=== PATIENT | male | born 1980 | race Caucasian/White ===

== ENCOUNTER 2020-04-14 03:52 | Emergency (ER) | payer MEDICARE, MEDICAID, SELFPAY ==
[2020-04-14 03:57] VITALS: BP 105/75; BP 114/77; PULSE 91; PULSE 95; RESP 18; TEMP 36.7; O2SAT 100; O2SAT 95; BMI 27.8
--- NOTE | 2020-04-14 04:08 | ED.PSYCH ---
HPI - Psych General Chief Complaint: Psychiatric Symptoms Stated Complaint: SI Time Seen by Provider: 04/14/20 04:08 History of Present Illness HPI Narrative: This is a 39-year-old male who presents with complaints of suicidal ideation with plan to jump in front of a car. In addition, patient states that he uses crack and smokes marijuana as well as drinking alcohol. He states he has been admitted before for depression and suicide attempt. Otherwise, he denies fevers, chills, shortness of breath, chest pain/palpitations,GI symptoms, symptoms Related Data Home Medications Medication Instructions Recorded Confirmed No Known Home Meds 04/14/20 04/14/20 Allergies Allergy/AdvReac Type Severity Reaction Status Date / Time amoxicillin Allergy Unknown Verified 04/14/20 04:11 Review of Systems Review of Systems: Pertinent positives and negatives as stated in the HPI. GEN: no fevers, chills, fatigue HEENT: no nasal congestion, sore throat, ear pain NEURO: no headache, dizziness, focal weakness PULM: no cough, shortness of breath CV: no chest pain, palpitations, LE edema ABD: no abdominal pain, nausea, vomiting, diarrhea : no dysuria, urgency, frequency SKIN: no rash ROS otherwise negative x 10 PMFSH Past Medical History Source: nursing notes reviewed Medical History No known health problems Social History Social History Alcohol intake: current Alcohol intake frequency: 3 or more drinks per day Alcohol type: beer, wine and hard liquor Smoking Status: Current every day smoker Smoked in Last 30 Days: Yes Use of substances other than those prescribed or required for medical reasons: Yes Substance Use Type: Crack/Cocaine Substance Use Frequency: Daily Last Used Substance: Just Prior to Admission Any prior treatment program specific to substance use: Yes Advance Directives: No Advance Directives Information Provided: No Physical Exam Vital Signs and I&O and Narrative: Vital Signs and I&O: Vital Signs Temp 98.1 F 04/14/20 03:57 Pulse 79 04/14/20 07:31 Resp 20 04/14/20 07:31 BP 112/67 04/14/20 07:31 Pulse Ox 99 04/14/20 07:31 Intake & Output 1004/14/20 04/14/20 18:59 06:59 18:59 Weight 109.275 kg Body Mass Index 27.8 VITAL SIGNS: Reviewed. GENERAL: Well developed, well nourished, in no acute distress. HEAD: Normocephalic/atraumatic, EYES: PERRLA, EOMI intact without pain, no nystagmus/pallor/icterus noted EARS: Ext canals without abnormality, TMs non-bulging and non-erythematous NOSE: Nares patent bilateral OROPHARYNX: no oral lesions noted, posterior pharynx clear and non-erythematous without noted tonsillar enlargement/erythema/exudates NECK: Supple, no adenopathy LUNGS: Normal breath sounds. No adventitious sounds or accessory muscle use. SpO2< 99%> CARDIOVASCULAR: Regular rate and rhythm without noted murmurs, no JVD or lower extremity edema. ABDOMEN: Soft, non-tender, non-distended with bowel sounds. No rigidity. No guarding. No palpable masses or hernias noted MUSCULOSKELETAL: No tenderness, deformities, or effusions noted on gross inspection. EXTREMITIES: No cyanosis, clubbing or edema. SKIN: Inspection of the skin reveals no rashes, ulcerations, jaundice, pallor, or petechiae. NEUROLOGIC: Alert and oriented x 4. Strength and sensation to light touch were grossly intact x 4. Course Course Course Narrative: is a 39-year-old male with history and clinical presentation consistent with suicidal ideation and depression and review urinalysis and drugs of abuse have been completed. Patient is otherwise medically cleared for evaluation by the crisis team. He is on a 1-1. MDM - Psych Restraints Face to Face Assessment: Face to Face Assessment: Current Situation: After assessment of the patient, a review of the pertinent medical record and a discussion with nursing staff, I feel the patient requires a restrain intervention. Reaction To: [] Medical Condition: [] Behavioral State: [] Continued Need: [] Lab Data Labs: Lab Results 04/14/20 04/14/20 Range/Units 04:21 04:21 Urine Color YELLOW Urine Appearance CLEAR Urine pH 6.0 (5.0-8.0) Ur Specific [place] 1.025 (1.005-1.025) Urine Protein NEG (NEG-TRACE) MG/DL Urine Glucose (UA) NEG (NEG) MG/DL Urine Ketones NEG (NEG) MG/DL Urine Blood NEG (NEG) Urine Nitrite NEG (NEG) Ur Leukocyte Esterase NEG (NEG) Urine Opiates Screen Not Detected (Not Detect) Ur Barbiturates Screen Not Detected (Not Detect) Ur Phencyclidine Scrn Not Detected (Not Detect) Ur Amphetamines Screen Not Detected (Not Detect) U Benzodiazepines Scrn POSITIVE H (Not Detect) Urine Cocaine Screen POSITIVE H (Not Detect) U Marijuana (THC) Screen Not Detected (Not Detect) Discharge Plan Discharge Prescriptions: No Action No Known Home Meds RF: 0
[2020-04-14 04:32] LABS: Glucose Urine UA NEG (NEG); Leukocyte Esterase Urine NEG (NEG); Nitrite Urine NEG (NEG); Specific Gravity - Urine 1.025 (1.005-1.025); Urine Blood NEG (NEG); Urine Ketones NEG (NEG); Urine Protein NEG (NEG-TRACE)
[2020-04-14 04:33] LABS: Appearance Urine CLEAR; Color Urine YELLOW; UACC Culture Trigger NO
[2020-04-14 04:58] LABS: Amphetamine Screen Urine Not Detected (Not Detect); Barbiturates, Urine Not Detected (Not Detect); Benzodiazepines Screen Urine POSITIVE (Not Detect); Cannabinoid Screen Urine Not Detected (Not Detect); Opiate Screen Urine Not Detected (Not Detect); Phencyclidine Screen Urine Not Detected (Not Detect)
[2020-04-14 05:02] LABS: Cocaine Screen Urine POSITIVE (Not Detect)
[2020-04-14 05:38] VITALS: BP 101/59; PULSE 83; RESP 18; O2SAT 98
[2020-04-14 07:31] VITALS: BP 112/67; PULSE 79; RESP 20; O2SAT 99
--- NOTE | 2020-04-14 09:48 | PC.NURSE ---
Demographic sheet and ED transfer report faxed and confirmed to [facility]. Pt awaiting N eval.
[2020-04-14 11:09] VITALS: BP 102/70; PULSE 96; RESP 20; TEMP 36.6; O2SAT 96
== END 2020-04-14 14:23 | disposition home or self-care (01) ==
PROVIDERS: Emergency Provider Student in an Organized Health Care Education/Training Program
DX: F32.9 Major depressive disorder, single episode, unspecified (principal); R45.851 Suicidal ideations; F14.90 Cocaine use, unspecified, uncomplicated; F12.90 Cannabis use, unspecified, uncomplicated; F17.200 Nicotine dependence, unspecified, uncomplicated; Z71.6 Tobacco abuse counseling
CPT/HCPCS: 80307; 81003; 99284

== ENCOUNTER 2020-12-19 18:17 | Emergency (ER) | payer MEDICARE, MEDICAID, SELFPAY ==
--- NOTE | 2020-12-19 | ECG_ITS ---
Test Reason : MEDCLEARANCE Blood Pressure : / mmHG Vent. Rate : 097 BPM Atrial Rate : 097 BPM P-R Int : 166 ms QRS Dur : 082 ms QT Int : 322 ms P-R-T Axes : 054 040 050 degrees QTc Int : 408 ms Normal sinus rhythm Normal ECG No previous ECGs available Referred By: Jeyn Issa Electronically Signed By:ESE LAM
[2020-12-19 18:22] VITALS: BP 105/81; PULSE 108; RESP 22; TEMP 36.9; O2SAT 95; BMI 23.7
--- NOTE | 2020-12-19 18:28 | ED_ITS ---
HPI - Psych General Chief Complaint: Psychiatric Symptoms <Jeny Issa NP - Last Filed: 12/20/20 01:27> Stated Complaint: Crisis <Jeny Issa NP - Last Filed: 12/20/20 01:27> Time Seen by Provider: 12/20/20 00:24 <Jeny Issa NP - Last Filed: 12/20/20 01:27> Source: patient and EMS <Jeny Issa NP - Last Filed: 12/20/20 01:27> Mode of arrival: EMS <Jeny Issa NP - Last Filed: 12/20/20 01:27> Limitations: altered mental status (Alcohol intoxication) <Jeny Issa NP - Last Filed: 12/20/20 01:27> History of Present Illness HPI Narrative: 40-year-old male presents via EMS with acute alcohol intoxication, suicidal ideation with plan to jump in traffic. He does report using cocaine today. <Jeny Issa NP - Last Filed: 12/20/20 01:27> MD complaint: suicidal ideation, feels depressed, anxiety, substance abuse and alcohol abuse <Jeny Issa NP - Last Filed: 12/20/20 01:27> Onset (ago): year(s) <Jeny Issa NP - Last Filed: 12/20/20 01:27> Duration: constant <Jeny Issa NP - Last Filed: 12/20/20 01:27> History of same: Yes <Jeny Issa NP - Last Filed: 12/20/20 01:27> Relieving factors: none <Jeny Issa NP - Last Filed: 12/20/20 01:27> Exacerbating factors: alcohol and drug use <Jeny Issa NP - Last Filed: 12/20/20 01:27> Context: recent alcohol abuse, recent drug abuse and significant life stressor <Jeny Issa NP - Last Filed: 12/20/20 01:27> Associated psychiatric symptoms: depression, suicidal ideation and racing thoughts <Jeny Issa NP - Last Filed: 12/20/20 01:27> Associated symptoms: denies other symptoms <Jeny Issa NP - Last Filed: 12/20/20:27> If self harm: admits thoughts of self harm and has plan <Jeny Issa NP - Last Filed: 12/20/20:27> Related Data Home Medications: Home Medications Medication Instructions Recorded Confirmed pantoprazole 40 mg PO 12/20/20 quetiapine 50 mg PO 12/20/20 <ANAMARIA Hale Last Filed: 12/20/20:27> Allergies/Adverse Reactions: Allergies Allergy/AdvReac Type Severity Reaction Status Date / Time amoxicillin Allergy Unknown Verified 04/14/20 04:11 <ANAMARIA Hale Last Filed: 12/20/20 01:27> Review of Systems 2 Review of Systems: Constitutional: No Fever, No Chills ENT/Mouth: No Ear Pain, No Nasal Congestion, No sore throat Eyes: No Eye Pain, No Swelling, No Redness Cardiovascular: No Chest Pain, No SOB Respiratory: No Cough, No Sputum, No Dyspnea Gastrointestinal: No Nausea, No Vomiting, No Diarrhea, No Hematochezia, No Melena Genitourinary: No Dysuria, No Urinary Frequency, No Hematuria Musculoskeletal: No Myalgias Skin: No Skin Lesions, No rash Neuro: No Weakness, No Numbness, No Paresthesias, No Dizziness, No Headache Psych: positive Anxiety, positive Depression, positive SI, positive alcohol and cocaine abuse Heme/Lymph: No Lymphadenopathy Endocrine: No Polyuria, No Polydipsia <ANAMARIA Hale Last Filed: 12/20/20:27> Yes all other systems are reviewed and are negative <Jeny Issa NP - Last Filed: 12/20/20 01:27> [facility] Past Medical History Attestation statement: The following information was validated with the patient. <Jeny Issa NP - Last Filed: 12/20/20:27> Source: old records reviewed <ANAMARIA Hale Last Filed: 12/20/20:27> Medical History: Medical History Anxiety Bipolar 1 disorder Depression No known health problems PTSD (post-traumatic stress disorder) <ANAMARIA Hale Last Filed: 12/20/20 01:27> Social History Social History: Social History Alcohol intake: current Alcohol intake frequency: 3 or more drinks per day A lcohol type: hard liquor Patient Tobacco Use Status: Current everyday Tobacco user Smoked in Last 30 Days: Yes Use of substances other than those prescribed or required for medical reasons: No Substance Use Type: Crack/Cocaine Advance Directives: No Advance Directives Information Provided: Yes Healthcare Proxy: No Guardian: No <Jeny Issa NP - Last Filed: 12/20/20 01:27> Physical Exam Vital Signs: Vital Signs: Last Vital Signs Temp 99.2 F 12/20/20 00:46 Pulse 89 12/20/20 00:46 Resp 18 12/20/20 00:46 BP 107/63 12/20/20 00:46 Pulse Ox 96 12/20/20 00:46 Body Mass Index 23.7 <Jeny Issa NP - Last Filed: 12/20/20 01:27> Vital Signs: Last Vital Signs Temp 99.2 F 12/20/20 00:46 Pulse 89 12/20/20 00:46 Resp 18 12/20/20 00:46 BP 107/63 12/20/20 00:46 Pulse Ox 96 12/20/20 00:46 Body Mass Index 23.7 <ELIU Perez - Last Filed: 12/20/20 08:38> Appearance: Alert. Oriented X3. No acute distress. Eyes: Pupils equal, round and reactive to light. ENT: Pharynx normal. Neck: Normal inspection. Neck supple. CVS: Tachycardic heart rate and rhythm. Pulses normal. Respiratory: No respiratory distress. Breath sounds normal. Abdomen: Soft and nontender. Skin: Skin warm and dry. Normal skin color. Normal skin turgor. Extremities: No lower extremity edema. Neuro: No motor deficit. No sensory deficit. <Jeny Issa NP - Last Filed: 12/20/20 01:27> Course Reevaluation(s) Reevaluation #1: 40-year-old male presents with acute alcohol intoxication, cocaine abuse, and suicidal ideation with plan to jump in front of traffic. States the significant history of both of his parents committing suicide on the same day has been hunting him. He is having a difficult time managing his feelings. Has been drinking at least 20 nips per day. Plan of care is for Section 12, BHN consult, psychiatric consult, and labs. It is interesting to note that patient does not have an alcohol content although he reports drinking more than 20 nips per day. Midnight care team consult complete. Plan is for inpatient, dual diagnosis. Physician observation started at this time. <Jeny Issa NP - Last Filed: 12/20/20 01:27> MDM - Psych Differential Diagnosis Differential diagnosis: Likely acute psychosis, suicidal ideation, depression, drug-induced psychotic disorder, acute anxiety, substance abuse and alcohol intoxication <Jeny Issa NP - Last Filed: 12/20/20 01:27> Medical Records Attestation: I reviewed the patient's medical records. <Jeny Issa NP - Last Filed: 12/20/20 01:27> Lab Data Attestation: I reviewed the patient's lab results. <Jeny Issa NP - Last Filed: 12/20/20 01:27> Result diagrams: : 12/19/20 19:11 12/19/20 19:11 <Jeny Issa NP - Last Filed: 12/20/20 01:27> Labs: Lab Results 12/19/20 12/19/20 12/19/20 Range/Units 19:11 19:11 19:11 WBC 13.8 H (4.8-10.8) X10*3/uL RBC 4.89 (4.60-5.80) X10*6/uL Hgb 14.9 (14.0-18.0) g/dl Hct 43.3 (42-52) % MCV 88.5 (80-98) fL MCH 30.5 (27.0-33.0) pg MCHC 34.4 (31.0-36.0) g/dl RDW 14.1 (11.0-16.0) % Plt Count 291 (160-400) X10*3/uL MPV 8.9 L (9.4-12.4) fL Immature Gran % (Auto) 4.8 H (0.0-0.4) % Neut % (Auto) 69.6 (45-73) % Lymph % (Auto) 17.4 L (20-40) % [place] % (Auto) 7.4 (2-11) % Eos % (Auto) 0.1 (0-4) % Baso % (Auto) 0.7 (0-2) % Lymph # (Auto) 2.4 (1.2-4.9) X10*3/uL [place] # (Auto) 1.0 (0.1-1.2) X10*3/uL Eos # (Auto) 0.0 (0.0-0.4) X10*3/uL Baso # (Auto) 0.1 (0.0-0.2) X10*3/uL Abs Immat Gran (auto) 0.66 H (0.00-0.03) X10*3/uL Absolute Neuts (auto) 9.6 H (2.0-8.3) X10*3/uL Absolute Nucleated RBC 0.000 (0.0-0.012) X10*3/uL Nucleated RBC % (auto) 0.0 (0.0-0.2) /100WBC Sodium 141 (135-145) mmol/L Potassium 5.0 (3.3-5.1) mmol/L Chloride 103 (96-108) mmol/L Carbon Dioxide 28 (22-29) mmol/L Anion Gap 15 (12-20) BUN 16 (9-16) mg/dL Creatinine 1.07 (0.5-1.4) mg/dL Estim Creat Clear Calc 92.6 Estimated GFR > 60 Random Glucose 120 H (60-115) mg/dL Uric Acid 9.7 H (3.4-7.0) mg/dL Calcium 9.5 (8.4-10.2) mg/dL Urine Opiates Screen (Not Detect) Ur Barbiturates Screen (Not Detect) Ur Phencyclidine Scrn (Not Detect) Ur Amphetamines Screen (Not Detect) U Benzodiazepines Scrn (Not Detect) Urine Cocaine Screen (Not Detect) U Marijuana (THC) Screen (Not Detect) Ethyl Alcohol < 10 mg/dL 12/19/20 Range/Units 19:11 WBC (4.8-10.8) X10*3/uL RBC (4.60-5.80) X10*6/uL Hgb (14.0-18.0) g/dl Hct (42-52) % MCV (80-98) fL MCH (27.0-33.0) pg MCHC (31.0-36.0) g/dl RDW (11.0-16.0) % Plt Count (160-400) X10*3/uL MPV (9.4-12.4) fL Immature Gran % (Auto) (0.0-0.4) % Neut % (Auto) (45-73) % Lymph % (Auto) (20-40) % [place] % (Auto) (2-11) % Eos % (Auto) (0-4) % Baso % (Auto) (0-2) % Lymph # (Auto) (1.2-4.9) X10*3/uL [place] # (Auto) (0.1-1.2) X10*3/uL Eos # (Auto) (0.0-0.4) X10*3/uL Baso # (Auto) (0.0-0.2) X10*3/uL Abs Immat Gran (auto) (0.00-0.03) X10*3/uL Absolute Neuts (auto) (2.0-8.3) X10*3/uL Absolute Nucleated RBC (0.0-0.012) X10*3/uL Nucleated RBC % (auto) (0.0-0.2) /100WBC Sodium (135-145) mmol/L Potassium (3.3-5.1) mmol/L Chloride (96-108) mmol/L Carbon Dioxide (22-29) mmol/L Anion Gap (12-20) BUN (9-16) mg/dL Creatinine (0.5-1.4) mg/dL Estim Creat Clear Calc Estimated GFR Random Glucose (60-115) mg/dL Uric Acid (3.4-7.0) mg/dL Calcium (8.4-10.2) mg/dL Urine Opiates Screen Not Detected (Not Detect) Ur Barbiturates Screen Not Detected (Not Detect) Ur Phencyclidine Scrn Not Detected (Not Detect) Ur Amphetamines Screen Not Detected (Not Detect) U Benzodiazepines Scrn Not Detected (Not Detect) Urine Cocaine Screen POSITIVE H (Not Detect) U Marijuana (THC) Screen Not Detected (Not Detect) Ethyl Alcohol mg/dL <Jeny Issa, [employer] INVENT[employer] SPECIALIST - Last Filed: 12/20/20 01:27> Lab Results 12/19/20 12/19/20 12/19/20 Range/Units 19:11 19:11 19:11 WBC 13.8 H (4.8-10.8) X10*3/uL RBC 4.89 (4.60-5.80) X10*6/uL Hgb 14.9 (14.0-18.0) g/dl Hct 43.3 (42-52) % MCV 88.5 (80-98) fL MCH 30.5 (27.0-33.0) pg MCHC 34.4 (31.0-36.0) g/dl RDW 14.1 (11.0-16.0) % Plt Count 291 (160-400) X10*3/uL MPV 8.9 L (9.4-12.4) fL Immature Gran % (Auto) 4.8 H (0.0-0.4) % Neut % (Auto) 69.6 (45-73) % Lymph % (Auto) 17.4 L (20-40) % [place] % (Auto) 7.4 (2-11) % Eos % (Auto) 0.1 (0-4) % Baso % (Auto) 0.7 (0-2) % Lymph # (Auto) 2.4 (1.2-4.9) X10*3/uL [place] # (Auto) 1.0 (0.1-1.2) X10*3/uL Eos # (Auto) 0.0 (0.0-0.4) X10*3/uL Baso # (Auto) 0.1 (0.0-0.2) X10*3/uL Abs Immat Gran (auto) 0.66 H (0.00-0.03) X10*3/uL Absolute Neuts (auto) 9.6 H (2.0-8.3) X10*3/uL Absolute Nucleated RBC 0.000 (0.0-0.012) X10*3/uL Nucleated RBC % (auto) 0.0 (0.0-0.2) /100WBC Sodium 141 (135-145) mmol/L Potassium 5.0 (3.3-5.1) mmol/L Chloride 103 (96-108) mmol/L Carbon Dioxide 28 (22-29) mmol/L Anion Gap 15 (12-20) BUN 16 (9-16) mg/dL Creatinine 1.07 (0.5-1.4) mg/dL Estim Creat Clear Calc 92.6 Estimated GFR > 60 Random Glucose 120 H (60-115) mg/dL Uric Acid 9.7 H (3.4-7.0) mg/dL Calcium 9.5 (8.4-10.2) mg/dL Urine Opiates Screen (Not Detect) Ur Barbiturates Screen (Not Detect) Ur Phencyclidine Scrn (Not Detect) Ur Amphetamines Screen (Not Detect) U Benzodiazepines Scrn (Not Detect) Urine Cocaine Screen (Not Detect) U Marijuana (THC) Screen (Not Detect) Ethyl Alcohol < 10 mg/dL 12/19/20 Range/Units 19:11 WBC (4.8-10.8) X10*3/uL RBC (4.60-5.80) X10*6/uL Hgb (14.0-18.0) g/dl Hct (42-52) % MCV (80-98) fL MCH (27.0-33.0) pg MCHC (31.0-36.0) g/dl RDW (11.0-16.0) % Plt Count (160-400) X10*3/uL MPV (9.4-12.4) fL Immature Gran % (Auto) (0.0-0.4) % Neut % (Auto) (45-73) % Lymph % (Auto) (20-40) % [place] % (Auto) (2-11) % Eos % (Auto) (0-4) % Baso % (Auto) (0-2) % Lymph # (Auto) (1.2-4.9) X10*3/uL [place] # (Auto) (0.1-1.2) X10*3/uL Eos # (Auto) (0.0-0.4) X10*3/uL Baso # (Auto) (0.0-0.2) X10*3/uL Abs Immat Gran (auto) (0.00-0.03) X10*3/uL Absolute Neuts (auto) (2.0-8.3) X10*3/uL Absolute Nucleated RBC (0.0-0.012) X10*3/uL Nucleated RBC % (auto) (0.0-0.2) /100WBC Sodium (135-145) mmol/L Potassium (3.3-5.1) mmol/L Chloride (96-108) mmol/L Carbon Dioxide (22-29) mmol/L Anion Gap (12-20) BUN (9-16) mg/dL Creatinine (0.5-1.4) mg/dL Estim Creat Clear Calc Estimated GFR Random Glucose (60-115) mg/dL Uric Acid (3.4-7.0) mg/dL Calcium (8.4-10.2) mg/dL Urine Opiates Screen Not Detected (Not Detect) Ur Barbiturates Screen Not Detected (Not Detect) Ur Phencyclidine Scrn Not Detected (Not Detect) Ur Amphetamines Screen Not Detected (Not Detect) U Benzodiazepines Scrn Not Detected (Not Detect) Urine Cocaine Screen POSITIVE H (Not Detect) U Marijuana (THC) Screen Not Detected (Not Detect) Ethyl Alcohol mg/dL <ELIU Perez - Last Filed: 12/20/20 08:38> ECG Data Attestation: I personally reviewed and interpreted this ECG as follows: <Jeny randle NP - Last Filed: 12/20/20 01:27> ECG interpretation date: 12/19/20 <Jeny Issa NP - Last Filed: 12/20/20 01:27> ECG interpretation time: 18:41 <Jeny Issa NP - Last Filed: 12/20/20 01:27> Prior ECG tracings: not available for review <Jeny Issa NP - Last Filed: 12/20/20 01:27> Interpretation: Vent. rate 97 BPM [place] interval 166 ms QRS duration 82 ms QT/QTc 322/408 ms P-R-T axes 54 40 50 Normal sinus rhythm Normal ECG No previous ECGs available <Jeny Issa NP - Last Filed: 12/20/20 01:27> Discharge Plan Discharge Clinical Impression: Acute psychosis, Suicidal ideation Drug-induced psychotic disorder Qualifiers: Complication of substance-induced condition: with unspecified complication Qualified Code(s): F19.959 - Other psychoactive substance use, unspecified with psychoactive substance-induced psychotic disorder, unspecified <Jeny Issa NP - Last Filed: 12/20/20 01:27> Prescriptions: No Action pantoprazole 40 mg tablet,delayed release (DR/EC) 40 mg PO RF: 0 quetiapine 50 mg tablet 50 mg PO RF: 0 <Jeny Issa NP - Last Filed: 12/20/20 01:27> ED Observation ED Observation Progress Notes 1: Progress Note: 12/20/20 - 08:37 ELIU Perez Physician observation continued. Vital signs remained stable within normal limits. Patient had an uneventful night. Patient is currently awake no complaints or concerns at this time. No focal neuro deficits are noted. Lungs clear to auscultation. CV RRR. Abdomen is soft and nontender. Patient is being followed by the care team and is inpatient sections of bed search for dual d iagnosis. Will continue to monitor. <ELIU Perez - Last Filed: 12/20/20 08:38>
[2020-12-19 18:35] VITALS: BP 105/81; PULSE 108; RESP 22; TEMP 36.9; O2SAT 95
--- NOTE | 2020-12-19 18:39 | PC.NURSE ---
Corby admits to drinking at least 23 nips of vodka today- daily alcohol abuse. C/O headache.
[2020-12-19 19:24] LABS: MANUAL DIFF FLAG NO
[2020-12-19 19:37] LABS: Basophils Absolute Auto 0.1 X10*3/uL (0.0-0.2); Basophils Percent Auto 0.7 % (0-2); Eosinophils Percent Auto 0.1 % (0-4); Hematocrit 43.3 % (42-52); Hemoglobin 14.9 g/dl (14.0-18.0); Imm Gran Abs Auto 0.66 X10*3/uL (0.00-0.03); Imm Gran Pct Auto 4.8 % (0.0-0.4); Lymphocytes Absolute Auto 2.4 X10*3/uL (1.2-4.9); Lymphocytes Percent Auto 17.4 % (20-40); Mean Corpuscular HGB Conc 34.4 g/dl (31.0-36.0); Mean Corpuscular Hemoglobin 30.5 pg (27.0-33.0); Mean Corpuscular Volume 88.5 fL (80-98); Mean Platelet Volume 8.9 fL (9.4-12.4); Monocytes Percent Auto 7.4 % (2-11); Neutrophils Absolute Auto 9.6 X10*3/uL (2.0-8.3); Neutrophils Percent Auto 69.6 % (45-73); Platelet Count 291 X10*3/uL (160-400); Red Blood Count 4.89 X10*6/uL (4.60-5.80); Red Cell Distribution Width 14.1 % (11.0-16.0); White Blood Count 13.8 X10*3/uL (4.8-10.8)
[2020-12-19 19:49] LABS: Ethanol < 10 mg/dL
[2020-12-19 19:52] LABS: Amphetamine Screen Urine Not Detected (Not Detect); Barbiturates, Urine Not Detected (Not Detect); Benzodiazepines Screen Urine Not Detected (Not Detect); Cannabinoid Screen Urine Not Detected (Not Detect); Cocaine Screen Urine POSITIVE (Not Detect); Opiate Screen Urine Not Detected (Not Detect); Phencyclidine Screen Urine Not Detected (Not Detect)
[2020-12-19 19:58] LABS: Anion Gap 15 (12-20); Blood Urea Nitrogen 16 mg/dL (9-16); Calcium 9.5 mg/dL (8.4-10.2); Carbon Dioxide 28 mmol/L (22-29); Chloride 103 mmol/L (96-108); Creatinine Clr Calc Pharmacy 92.6; Estimated Glomerular Filt Rate > 60; Glucose Random 120 mg/dL (60-115); Sodium 141 mmol/L (135-145)
[2020-12-19 20:10] LABS: Uric Acid 9.7 mg/dL (3.4-7.0)
[2020-12-20 00:46] VITALS: BP 107/63; PULSE 89; RESP 18; TEMP 37.3; O2SAT 96
--- NOTE | 2020-12-20 01:08 | PC.NURSE ---
Per CARE team pt is now in-patient bedsearch-dual diagnosis. Pt with order for indomethacin, call to nursing over the horizon targeting supervisor to obtain med from pyxis on the floor. Pt resting quietly in community area behind nurses station at this time.
[2020-12-20] MEDS: Indomethacin 25 MG CAPSULE 50 MG PO ×2 (01:24→11:47)
--- NOTE | 2020-12-20 02:01 | MHC.CARE ---
CARE team completed evaluation. Pt will board in ED awaiting Dual Diagnosis placement. Sect 12a is in chart.
--- NOTE | 2020-12-20 07:22 | PC.NURSE ---
patient appears in no distress, resting in group area respirations even and unlabored. received report from prior shift nursing staff
[2020-12-20 09:37] LABS: COVID-19 Test Negative (Negative); IDNOW Serial# 08D9AD1C
--- NOTE | 2020-12-20 11:27 | MHC.RECOVSUP ---
? Reason for consult:Continuity of care o Current [facility]: o Identified substance use concern:ETOH,Heroin - Overdose - Withdrawal - Seeking ATS (detox) - Support ? Intervention: o ATS bed search started/completed/in proces o Community resources provided o Harm reduction discussion ? Plan: o Referral to [facility] o Bed search in progress o Patient to follow up with [facility] after discharge ? Additional information: [facility], Patient was seeking an [facility] bed. Patient was successful. Pt was sucessful and discharged.
[2020-12-20] MEDS: predniSONE 20 MG TABLET 60 MG PO (11:47)
[2020-12-20 11:53] VITALS: BP 111/78; PULSE 100; TEMP 36.6; O2SAT 96
--- NOTE | 2020-12-20 15:20 | PC.NURSE ---
bls transport at bedside. paperwork given.
--- NOTE | 2020-12-20 15:21 | PC.NURSE ---
facilily contacted at [phone], contact made to jose. confirmed that rn to rn report occured. Action bls leaving now.
== END 2020-12-20 15:26 ==
PROVIDERS: Nurse Practitioner Family; Emergency Provider Emergency Medicine
DX: F19.959 Other psychoactive substance use, unspecified with psychoactive substance-induced psychotic disorder, unspecified (principal); R45.851 Suicidal ideations; F32.9 Major depressive disorder, single episode, unspecified; F43.10 Post-traumatic stress disorder, unspecified; Z20.822 Contact with and (suspected) exposure to COVID-19
CPT/HCPCS: 36415; 80048; 80307; 82077; 84550; 85025; 87635; 93005; 99285

== ENCOUNTER 2021-04-18 01:08 | Emergency (ER) | payer MEDICARE, MEDICAID, SELFPAY ==
[2021-04-18 01:14] VITALS: BP 126/82; PULSE 104; RESP 20; TEMP 36.7; O2SAT 96; BMI 25.6
--- NOTE | 2021-04-18 04:29 | ED.GENADULT ---
HPI - General Adult General Chief complaint: ETOH/Substance Use Stated complaint: Seeking detox Time Seen by Provider: 04/18/21 04:21 Source: patient Mode of arrival: ambulatory Limitations: no limitations History of Present Illness HPI narrative: 40-year-old male who presents emergency department for evaluation for help with his polysubstance abuse. The patient states that he has been drinking 20 nips of alcohol per day with his last drink being last night. He states that he uses heroin 4-5 bags at a time either intranasally or by injection states he last used 4 days ago. He states he has also been taking Adderall pills and at least 4 Vicodin pills per day. He also states that the uses intranasal cocaine as well as injection cocaine. The patient states that he wants to get into a detox program. He cannot remember when he was last sober when he was last in a detox program. He states that he has been vaccinated with the Ant Ant vaccine. He denied fever, chills, chest pain, shortness of breath, nausea, vomiting, myalgias, arthralgias, diarrhea, loss of sense of taste or smell. Related Data Home Medications Medication Instructions Recorded Confirmed pantoprazole 40 mg tablet,delayed 40 mg PO 12/20/20 release quetiapine 50 mg tablet 50 mg PO 12/20/20 Allergies Allergy/AdvReac Type Severity Reaction Status Date / Time amoxicillin Allergy Unknown Verified 04/14/20 04:11 Review of Systems Review of Systems: Yes all other systems are reviewed and are negative [facility] Past Medical History [facility] Narrative: Social history: The patient smokes 1 pack of cigarettes per day times 16 years. The patient drinks at least 20 nips of alcohol per day with his last drink last night. The patient admits to using heroin, and cocaine both intranasally and by injection. He also has been using Vicodin and Adderall. Medical History Anxiety Bipolar 1 disorder Depression ETOH abuse No known health problems PTSD (post-traumatic stress disorder) Substance abuse Social History Social History Alcohol intake: current Alcohol intake frequency: 3 or more drinks per day Alcohol type: hard liquor Patient Tobacco Use Status: Current everyday Tobacco user Substance Use Type: Crack/Cocaine Advance Directives: No Physical Exam Vital Signs: Vital Signs: Last Vital Signs Temp 98.0 F 04/18/21 01:14 Pulse 104 H 04/18/21 01:14 Resp 20 04/18/21 01:14 BP 126/82 04/18/21 01:14 Pulse Ox 96 04/18/21 01:14 Body Mass Index 25.6 Const: General: cooperative and no acute distress Orientation/consciousness: oriented to person and oriented to place Limitations: no limitations HENMT: Head: Yes normal to inspection, Yes normocephalic and Yes atraumatic Ears: external ears normal General nose exam: Normal external nose present Face and sinus: Yes normal facial exam Mouth: Normal oral and palatal mucosa present Throat: Yes posterior oropharynx normal Eyes: General: appearance normal, both eyes and all related structures Pupils: Equal, round and reactive pupils present Neck: Neck: Yes normal visual inspection, Yes no lymphadenopathy, Yes trachea midline and Yes supple Chest: Chest palpation & inspection: normal inspection of the chest and normal palpation of entire chest wall Resp: Effort & Inspection: normal respiratory effort and able to speak in complete sentences Auscultation: clear to auscultation bilaterally Cardio: Rate: regular rate Rhythm: regular rhythm Heart sounds: S1 normal heart sound present, S2 normal heart sound present and no murmurs GI: Inspection: Yes normal to inspection Palpation (GI): Soft to palpation, nontender and no guarding Auscultation: normal bowel sounds : General: Yes no CVA tenderness Back/Spine/Pelvis: Back: no CVA tenderness Skin: General skin exam: no rashes or lesions noted Neuro: General: oriented to person and oriented to place Cranial nerves: Yes CN's II-XII intact bilaterally and Yes Equal, round and reactive pupils present Cognition (Neuro): normal cognition Motor exam (neuro): 5/5 motor strength present throughout Extrem: General: Yes normal to inspection Psych: Appearance: grossly normal Speech and movement: Normal speech and movement present Affect: normal affect Attitude: cooperative Thought process: Normal thought process present Thought content: Normal thought content present Course Course Course Narrative: 40-year-old male who presents emergency department for evaluation of polysubstance use disorder and requesting detox. The patient has been using heroin, cocaine, Adderall and Vicodin. The patient's vital signs revealed tachycardia with a pulse of 104 otherwise were unremarkable. Patient's physical examination was unremarkable. I did order laboratory evaluation includes CBC, CMP, Tylenol, acetaminophen, urine tox screen, alcohol level. 0705: The patient's laboratory evaluation revealed a normal CBC. CMP revealed a low potassium 3.2. Patient has an elevated creatinine of 1.68. AST and ALT were elevated 85 and 86. Urine tox screen was negative for salicylates and acetaminophen, blood alcohol levels below detectable limits, urine tox screen was positive for cocaine only. The patient is medically cleared for care team/acid recovery operator evaluation. Patient's care was turned over to my colleague, Dr. Natalia Miller. Medical Decision Making Lab Data Result diagrams: 04/18/21 04:43 04/18/21 04:43 Labs: Lab Results 04/18/21 04/18/21 04/18/21 Range/Units 04:43 04:43 04:43 WBC 8.9 (4.8-10.8) X10*3/uL RBC 5.10 (4.60-5.80) X10*6/uL Hgb 15.3 (14.0-18.0) g/dl Hct 43.0 (42-52) % MCV 84.3 (80-98) fL MCH 30.0 (27.0-33.0) pg MCHC 35.6 (31.0-36.0) g/dl RDW 14.0 (11.0-16.0) % Plt Count 327 (160-400) X10*3/uL MPV 9.3 L (9.4-12.4) fL Immature Gran % (Auto) 0.3 (0.0-0.4) % Neut % (Auto) 49.7 (45-73) % Lymph % (Auto) 39.7 (20-40) % Zavala % (Auto) 9.3 (2-11) % Eos % (Auto) 0.4 (0-4) % Baso % (Auto) 0.6 (0-2) % Lymph # (Auto) 3.5 (1.2-4.9) X10*3/uL Zavala # (Auto) 0.8 (0.1-1.2) X10*3/uL Eos # (Auto) 0.0 (0.0-0.4) X10*3/uL Baso # (Auto) 0.1 (0.0-0.2) X10*3/uL Abs Immat Gran (auto) 0.03 (0.00-0.03) X10*3/uL Absolute Neuts (auto) 4.4 (2.0-8.3) X10*3/uL Absolute Nucleated RBC 0.000 (0.0-0.012) X10*3/uL Nucleated RBC % (auto) 0.0 (0.0-0.2) /100WBC Sodium 140 (135-145) mmol/L Potassium 3.2 L D (3.3-5.1) mmol/L Chloride 106 (96-108) mmol/L Carbon Dioxide 28 (22-29) mmol/L Anion Gap 9 L (12-20) BUN 15 (9-16) mg/dL Creatinine 1.68 H (0.5-1.4) mg/dL Estim Creat Clear Calc 76.3 Estimated GFR 46 Random Glucose 98 (60-115) mg/dL Calcium 8.9 D (8.4-10.2) mg/dL Total Bilirubin 0.7 (0.0-1.0) mg/dL AST 85 H (5-37) U/L ALT 86 H (0-40) U/L Alkaline Phosphatase 50 (39-117) U/L Total Protein 6.6 (6.5-8.0) g/dL Albumin 3.9 (3.5-5.0) g/dL Salicylates < 5.0 L (15-30) mg/dL Acetaminophen < 1 (<30) mcg/mL Ethyl Alcohol < 10 mg/dL COVID-19 ([facility]) (Negative) COVID-19 Clin Com 04/18/21 Range/Units 04:43 WBC (4.8-10.8) X10*3/uL RBC (4.60-5.80) X10*6/uL Hgb (14.0-18.0) g/dl Hct (42-52) % MCV (80-98) fL MCH (27.0-33.0) pg MCHC (31.0-36.0) g/dl RDW (11.0-16.0) % Plt Count (160-400) X10*3/uL MPV (9.4-12.4) fL Immature Gran % (Auto) (0.0-0.4) % Neut % (Auto) (45-73) % Lymph % (Auto) (20-40) % Zavala % (Auto) (2-11) % Eos % (Auto) (0-4) % Baso % (Auto) (0-2) % Lymph # (Auto) (1.2-4.9) X10*3/uL Zavala # (Auto) (0.1-1.2) X10*3/uL Eos # (Auto) (0.0-0.4) X10*3/uL Baso # (Auto) (0.0-0.2) X10*3/uL Abs Immat Gran (auto) (0.00-0.03) X10*3/uL Absolute Neuts (auto) (2.0-8.3) X10*3/uL Absolute Nucleated RBC (0.0-0.012) X10*3/uL Nucleated RBC % (auto) (0.0-0.2) /100WBC Sodium (135-145) mmol/L Potassium (3.3-5.1) mmol/L Chloride (96-108) mmol/L Carbon Dioxide (22-29) mmol/L Anion Gap (12-20) BUN (9-16) mg/dL Creatinine (0.5-1.4) mg/dL Estim Creat Clear Calc Estimated GFR Random Glucose (60-115) mg/dL Calcium (8.4-10.2) mg/dL Total Bilirubin (0.0-1.0) mg/dL AST (5-37) U/L ALT (0-40) U/L Alkaline Phosphatase (39-117) U/L Total Protein (6.5-8.0) g/dL Albumin (3.5-5.0) g/dL Salicylates (15-30) mg/dL Acetaminophen (<30) mcg/mL Ethyl Alcohol mg/dL COVID-19 ([facility]) Negative (Negative) COVID-19 Clin Com See Note Discharge Plan Discharge Clinical Impression: Polysubstance abuse, Alcohol use Prescriptions: No Action pantoprazole 40 mg tablet,delayed release (DR/EC) 40 mg PO RF: 0 quetiapine 50 mg tablet 50 mg PO RF: 0
[2021-04-18 04:50] LABS: MANUAL DIFF FLAG NO
[2021-04-18 04:51] LABS: Basophils Absolute Auto 0.1 X10*3/uL (0.0-0.2); Basophils Percent Auto 0.6 % (0-2); Eosinophils Percent Auto 0.4 % (0-4); Hemoglobin 15.3 g/dl (14.0-18.0); Imm Gran Abs Auto 0.03 X10*3/uL (0.00-0.03); Imm Gran Pct Auto 0.3 % (0.0-0.4); Lymphocytes Absolute Auto 3.5 X10*3/uL (1.2-4.9); Lymphocytes Percent Auto 39.7 % (20-40); Mean Corpuscular HGB Conc 35.6 g/dl (31.0-36.0); Mean Corpuscular Volume 84.3 fL (80-98); Mean Platelet Volume 9.3 fL (9.4-12.4); Monocytes Absolute Auto 0.8 X10*3/uL (0.1-1.2); Monocytes Percent Auto 9.3 % (2-11); Neutrophils Absolute Auto 4.4 X10*3/uL (2.0-8.3); Neutrophils Percent Auto 49.7 % (45-73); Platelet Count 327 X10*3/uL (160-400); White Blood Count 8.9 X10*3/uL (4.8-10.8)
[2021-04-18 05:05] LABS: Ethanol < 10 mg/dL
[2021-04-18 05:10] LABS: COVID-19 Test Negative (Negative)
[2021-04-18 05:18] LABS: Acetaminophen LAB < 1 mcg/mL (<30); Alanine Aminotransferase 86 U/L (0-40); Albumin Level 3.9 g/dL (3.5-5.0); Alkaline Phosphatase 50 U/L (39-117); Anion Gap 9 (12-20); Aspartate Amino Transferase 85 U/L (5-37); Bilirubin Total 0.7 mg/dL (0.0-1.0); Blood Urea Nitrogen 15 mg/dL (9-16); Calcium 8.9 mg/dL (8.4-10.2); Carbon Dioxide 28 mmol/L (22-29); Chloride 106 mmol/L (96-108); Creatinine Clr Calc Pharmacy 76.3; Estimated Glomerular Filt Rate 46; Glucose Random 98 mg/dL (60-115); Potassium 3.2 mmol/L (3.3-5.1); Salicylate < 5.0 mg/dL (15-30); Sodium 140 mmol/L (135-145); Total Protein 6.6 g/dL (6.5-8.0)
--- NOTE | 2021-04-18 07:28 | PC.NURSE ---
sleeping, skin pwd. chest rise noted.
[2021-04-18 07:59] VITALS: BP 108/64; PULSE 64; RESP 13; TEMP 36.4; O2SAT 94
[2021-04-18 08:19] LABS: Amphetamine Screen Urine Not Detected (Not Detect); Barbiturates, Urine POSITIVE (Not Detect); Benzodiazepines Screen Urine POSITIVE (Not Detect); Cannabinoid Screen Urine POSITIVE (Not Detect); Cocaine Screen Urine POSITIVE (Not Detect); Fentanyl, urine POSITIVE (Not Detect); Opiate Screen Urine POSITIVE (Not Detect); Phencyclidine Screen Urine Not Detected (Not Detect)
--- NOTE | 2021-04-18 11:12 | MHC.RECOVSUP ---
Recovery Support note: Patient is a 40 year old [place] speaking male who presented to [facility] ED seeking detox. Patient reports alcohol and opiate use in addition to cocaine. Patient reports a desire to get into treatment. Patient reports he has tried Suboxone in the past however states it makes him sick. Patient reports he is willing to go anywhere for treatment. This justowriter operator conducted an ATS bedsearch. Patient was referred to [facility] and completed an intake. [facility] reports that patient needs psychiatric services and they do not feel comfortable accepting him. This justowriter operator explained this to patient and he became frustrated. Patient reports he was honest regarding his past psychiatric history with the intake staff however states he feels safe at this time. This justowriter operator offered to work on securing another ATS bed and patient declined, stating he is going to leave and use. Encouraged patient to remain for his paperwork and patient declined. This justowriter operator walked with patient towards the exit and encouraged him to present to a local detox as a walk-in. Patient acknowlegded.
--- NOTE | 2021-04-18 11:32 | PC.NURSE ---
patient refusing detox. Left without making doctor or nurse aware. Patient left AMA. No discharge in. Provider aware.
== END 2021-04-18 11:33 | disposition left against medical advice (07) ==
PROVIDERS: Emergency Provider Emergency Medicine Emergency Medical Services
DX: F19.10 Other psychoactive substance abuse, uncomplicated (principal); F17.210 Nicotine dependence, cigarettes, uncomplicated; Z72.89 Other problems related to lifestyle; Z20.822 Contact with and (suspected) exposure to COVID-19
CPT/HCPCS: 36415; 80053; 80143; 80179; 80307; 82077; 85025; 87635; 99283; 99284